=== PATIENT | female | born 1965 | race Caucasian/White ===

== ENCOUNTER → 2017-05-01 | Outpatient (CLI) | payer OTHER ==
[~2017-05-01] MED LIST: CALCIUM PO; CALTRATE 600 +1 EAC2 PO; CENTRUM SILVER1 EAC4 PO; DIAZEPAM5 MG PO; EFFEXOR XR75 MG PO; FLOMAX0.4 MG PO; IBUPROFEN600 MG PO; LIDODERM 5% P1 PATCH TD; MELOXICAM15 MG PO; MOBIC15 MG PO; MOTRIN800 MG PO; NAPROXEN500 MG PO; NITROSTAT0.4 MG SL; NORCO 5/3251 TABLET PO; OXYCODONE-APAP1 EAC6 PO; PERCOCET 5/31 TABLET PO; PERCOCET 7.51 TABLET PO; XANAX0.5 MG PO; ZANAFLEX4 MG PO; [UNRECOGNIZED DRUG - OTHER] PO
== END | disposition home or self-care (01) ==
LOC: RAD 13:25
PROC: 3E0R3KZ Introduction of Other Diagnostic Substance into Spinal Canal, Percutaneous Approach (ICD-10-PCS; principal; 2017-05-01)
DX: M48.02 Spinal stenosis, cervical region (principal); M54.2 Cervicalgia; G89.29 Other chronic pain; M54.12 Radiculopathy, cervical region; Z98.1 Arthrodesis status; R93.7 Abnormal findings on diagnostic imaging of other parts of musculoskeletal system
CPT/HCPCS: 62302; 72126

== ENCOUNTER 2017-07-11 12:28 | Day surgery (SDC) | payer OTHER ==
[~2017-07-11] VITALS: Ht 172.7 cm; Wt 68.0 kg
[~2017-07-11 12:28] MED LIST changes: +EFFEXOR75 MG PO; +OXYCONTIN10 MG PO; +RITALIN10 MG PO
[2017-07-11 13:01] VITALS: BP 143/96
[2017-07-11 19:38] VITALS: BP 127/74
[2017-07-11 20:33] VITALS: BP 140/86
== END 2017-07-11 20:40 | disposition home or self-care (01) ==
LOC: SDC 12:28
PROC: 01N10ZZ Release Cervical Nerve, Open Approach (ICD-10-PCS; principal; 2017-07-11)
DX: M47.22 Other spondylosis with radiculopathy, cervical region (principal); Z98.1 Arthrodesis status; G89.29 Other chronic pain; M54.2 Cervicalgia; M25.519 Pain in unspecified shoulder; M48.02 Spinal stenosis, cervical region; K21.9 Gastro-esophageal reflux disease without esophagitis; K76.6 Portal hypertension; G43.909 Migraine, unspecified, not intractable, without status migrainosus; Z87.898 Personal history of other specified conditions; Z90.49 Acquired absence of other specified parts of digestive tract; Z90.710 Acquired absence of both cervix and uterus; Z87.891 Personal history of nicotine dependence; Z88.8 Allergy status to other drugs, medicaments and biological substances
CPT/HCPCS: 72020; 76000; J0330; J0690; J1030; J1100; J1170; J2405; J2550; J2710; J2930; J3010; Q0175; S0020